=== PATIENT | female | born 1960 | race Caucasian/White ===

== ENCOUNTER 2016-09-19 23:55 | Observation (INO) | payer MEDICARE, OTHER ==
--- NOTE | ~2016-09-19 | MR17 ---
[facility] A Service of [facility] RADIOLOGY TEXT RESULTS PATIENT: HIMANSHU ZELAYA LOCATION: [facility] 567-01 : [birth year] UNIT #: [id number] AGE: [address]: Hedy Bedolla MD SEX: F ORDER DR: [id number] [facility] [address] [place], [place] [address] [id number] I MR#: [id number] Acc #: [id number] NAME: HIMANSHU ZELAYA. : 1960 SEX: F STUDY DATE/TIME: 09/20/2016 12:31 UNIT: [facility] ROOM: [facility] STUDY DESCRIPTION: MR Brain WWo Contrast Attending Physician: Hedy Bedolla M.D. Ordering Physician: Cody Bridges M.D. Primary Care Physician: No Primary Care Physician MRI CENTER REPORT This report is preliminary unless electronic signature is present. EXAM MRI of the brain with and without contrast 09/20/2016 HISTORY Seizure disorder, increasing headaches for a year, hypertension, seizures for 2 years, most recent one 2 days ago, blood disorder, cancer history. COMMENTS Routine MRI of the brain performed prior to and following intravenous administration of 60 mL MultiHance on a 1.5T system with a seizure protocol. The study is, unfortunately, motion limited and this is despite the use of some motion limited sequences. COMPARISON STUDIES There is a head CT comparison from 09/20/2016. FINDINGS There is no evidence for a recent ischemic insult on the diffusion series. There is no Chiari I malformation. No MRI evidence for intracranial hemorrhage. The ventricles are normal in size and configuration for age group. The major intracranial flow voids are maintained. Mastoid air cells are clear. Visualized paranasal sinuses are clear. No extraaxial fluid collection. The coronal T2 weighted imaging is somewhat motion limited but there is no convincing evidence for mesial temporal sclerosis. No intracranial mass effect. Following contrast administration, again allowing for motion, there is no pathologic intracranial enhancement. There is nothing to suggest ashton matter heterotopia. IMPRESSION The study is somewhat motion limited. Allowing for this, this is essentially an unremarkable MRI of the brain with and without contrast for age group. No seizure focus is documented but, if there is an EEG, which STS. [facility] A Service of [facility] RADIOLOGY TEXT RESULTS PATIENT: HIMANSHU ZELAYA LOCATION: [facility] 567-01 : [birth year] UNIT #: [id number] AGE: [address]: Hedy Bedolla MD SEX: F ORDER DR: shows a seizure abnormality, direct comparison recommended. No recent ischemic insult, intracranial mass effect or pathologic intracranial enhancement appreciated. Minor periventricular white matter signal abnormality likely due to small vessel disease within the range of expected for age group. STAT * RESULT Dictated by... Michelle Mccarthy M.D. THIS IS AN ELECTRONICALLY VERIFIED REPORT Michelle Mccarthy M.D. at 09/20/2016 9:12 PM Katie TD: 09/20/2016 15:54 JOB #: [id number] MRI CENTER REPORT COPY
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
--- NOTE | ~2016-09-19 | DS ---
Unit #: [id number] #: [id number] Patient: HIMANSHU ZELAYA [id number] [address] [address] [id number] I MR#: [id number] NAME: HIMANSHU ZELAYA ROOM: 56 Age: 56 Sex: F Admission Date: 09/20/2016 : 1960 Discharge Date: Attending Physician: Hedy Bedolla M.D. Primary Care Physician: No Primary Care Physician DISCHARGE SUMMARY DISCHARGE DIAGNOSES 1. Seizures. 2. Spells with increasing headaches secondary to seizures. 3. Chronic pain. 4. Hypertension. 5. Hyperlipidemia. 6. Anxiety. 7. Depression, on chronic opiates and sedatives. 8. History of gastric bypass. 9. Back surgery. CONSULTATIONS Dr. Bridges. PROCEDURES None. DIAGNOSTIC TESTING IMAGING: CT of the head negative. MRI is pending at the time of dictation. Chest x-ray - No acute findings. LAB DATA: Urine drug screen positive for benzodiazepines and TCAs. Troponin is negative. Urinalysis negative. Creatinine 0.5. WBC 4.8, hemoglobin 11.3, platelets 131. ALLERGIES Penicillin and ketorolac. DISCHARGE MEDICATIONS 1. Vimpat 100 mg p.o. b.i.d. 2. Doxepin 25 mg at bedtime. 3. Cymbalta 30 daily. 4. Trazodone 50 at bedtime. 5. Tessalon Perles 100 t.i.d. 6. Klonopin 2 mg t.i.d. 7. Estradiol 0.5 mg p.o. daily. 8. Lovastatin 20 daily. 9. Roxicodone 5 mg t.i.d. p.r.n. pain. 10. Nexium 40 daily. 11. Carisoprodol 350 mg p.o. b.i.d. 12. Vitamin B12 - 1,000 mcg p.o. daily. Unit #: [id number] #: [id number] Patient: HIMANSHU ZELAYA HOSPITALIZATION COURSE A 56 year old admitted because of passing spells. Seizures with passing spells for almost a year. The patient was seen by Dr. Bridges. CAT scan of the head is negative. EEG is abnormal with left-sided discharges. The patient was started on Vimpat. I gave a prescription for it. The patient needs to see her neurologist, who she is seeing next month. She already had an appointment. Patient cannot drive until cleared by family physician or neurologist. Patient understands that she cannot drive. I also told her son about not driving. All seizure precautions apply. Chronic pain. Patient was mildly lethargic during the hospitalization course. She needs to cut down on her sedatives and narcotics. I discontinued her Phenergan, and I decreased her trazodone. Anxiety and depression. Stable. DISCHARGE PLAN 1. The patient will be discharged home after MRI resulted. 2. Follow with PCP in 1 week. 3. Follow with her neurologist of choice. She had an appointment next month. 4. I gave a prescription for Vimpat. 5. Patient cannot drive until cleared by PCP or neurologist. The patient understands instructions. Dictated by... Hedy Bedolla M.D. ALLYN/jc TD: 09/20/2016 16:05 JOB #: [id number] DISCHARGE SUMMARY X Hedy Bedolla MD X DISCHARGE SUMMARY
--- NOTE | ~2016-09-19 | CT71 ---
[facility] A Service of [facility] RADIOLOGY TEXT RESULTS PATIENT: HIMANSHU ZELAYA LOCATION: [facility] 567-01 : [birth year] UNIT #: [id number] AGE: [address]: Hedy Bedolla MD SEX: F ORDER DR: [id number] [facility] [address] [place], [place] [address] [id number] I MR#: [id number] #: [id number] NAME: HIMANSHU ZELAYA : 1960 SEX: F STUDY DATE/TIME: 09/20/2016 03:04 UNIT: [facility] ROOM: [facility] STUDY DESCRIPTION: CT Head Wo Contrast Attending Physician: Drea Delgado M.D. Ordering Physician: Gennaro Knapp D.O. Primary Care Physician: Primary Care Physician No MEDICAL IMAGING REPORT This report is preliminary unless electronic signature is present EXAM Head CT, 09/20/2016 at 0304 hours. INDICATION Chronic headaches for 1 year with syncopal episodes and dizziness. Patient's most recent blackout with yesterday. TECHNIQUE Axial images were obtained from base to vertex without contrast. Comparison is made with 03/01/2016. This CT exam was performed with one or more of the following radiation dose reduction techniques: automatic exposure control, adjustment of mA and/or kV according to patient size, and iterative reconstruction. FINDINGS Ventricular size and configuration are normal. No acute infarct or hemorrhage is seen. There are no masses. There are no skull fractures. Mild atrophy is noted, predominantly in the frontal lobes. This is unchanged. IMPRESSION Negative noncontrast head CT. Dictated by... Bill Okeefe Jr., M.D. THIS IS AN ELECTRONICALLY VERIFIED REPORT Bill Okeefe Jr., M.D. at 09/21/2016 6:04 AM APRIL/sj [facility] A Service of [facility] RADIOLOGY TEXT RESULTS PATIENT: HIMANSHU ZELAYA LOCATION: [facility] 567-01 [id number] [birth year] UNIT #: [id number] AGE: [address]: Hedy Bedolla MD SEX: F ORDER DR: TD: 09/20/2016 04:20 JOB #: [id number] MEDICAL IMAGING REPORT COPY
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
--- NOTE | ~2016-09-19 | EE ---
Unit #: [id number] #: [id number] Patient: HIMANSHU ZELAYA [id number] [address] [address] [id number] Vinnie MR#: [id number] NAME: HIMANSHU ZELAYA : 1960 SEX: F STUDY DATE/TIME: 09/20/2016 UNIT: [facility] ROOM: 567 STUDY DESCRIPTION: EEG Attending Physician: Hedy Bedolla M.D. Referring Physician: Drea Delgado M.D. Primary Care Physician: No Primary Care Physician NEURODIAGNOSTICS REPORT PROCEDURE PERFORMED EEG. REASON FOR STUDY Several syncopal or seizure-like spells. EEG DESCRIPTION This is an inpatient, digitally recorded, multi-montage, adult EEG with leads placed according to the International 10-20 system. Hyperventilation and photic stimulation were attempted. PROCEDURE REPORT With the patient fully aroused, there is 10 Hz to 11 Hz posterior dominant alpha rhythm, which is symmetric and attenuates with eyes opening. There was some beta artifact. There was also some subtle slowing on the left side and definitely some transients, and occasionally phase reversing was seen between F7 and T3 and subtly between C3 and P3. Hyperventilation was attempted, and I do see a little bit of accentuation on the left side especially between F7 and T3 and some phase reversing. Photic stimulation was attempted in intermittent stepwise pattern up to flash frequency of 30 Hz, but I did not see any good deeper sustained driving. The patient did fall asleep, and stage II sleep was seen. IMPRESSION This is an abnormal, adult, awake and asleep EEG. The abnormality is the presence of slowing and some irritable foci on the left side. Please definitely clinically correlate with the patient's history and imaging studies. Please make sure there is no structural abnormality on MRI or CT, and clinical correlation is recommended. Treatment may be considered. Dictated by... Shani Martinez/jc TD: 09/20/2016 16:16 JOB #: [id number] Unit #: [id number] #: [id number] Patient: HIMANSHU ZELAYA NEURODIAGNOSTICS REPORT X Cody Bridges MD NEURODIAGNOSTICS REPORT
--- NOTE | ~2016-09-19 | CR72 ---
[facility] A Service of [facility] RADIOLOGY TEXT RESULTS PATIENT: HIMANSHU ZELAYA LOCATION: [facility] : [birth year] UNIT #: [id number] AGE: [address]: Drea Delgado MD SEX: F ORDER DR: [id number] [facility] [address] [place], [place] [address] [id number] MR#: [id number] Acc #: [id number] NAME: HIMANSHU ZELAYA : 1960 SEX: F STUDY DATE/TIME: 09/20/2016 01:24 UNIT: [facility] ROOM: STUDY DESCRIPTION: CR Chest Single View Portable Attending Physician: Gennaro Knapp D.O. Ordering Physician: Gennaro Knapp D.O. Primary Care Physician: Primary Care Physician No MEDICAL IMAGING REPORT This report is preliminary unless electronic signature is present EXAM Portable chest, 09/20/2016 at 0124 hours. INDICATION Blackout spells for the last 2 years. The most recent was 2 weeks ago. History of hypertension. Generalized weakness. FINDINGS AP portable chest was obtained. No comparison. There is mild cardiomegaly. There is marked elevation of the right hemidiaphragm. Lungs are clear. There is no pneumothorax. Patient is status post cervical fusion. IMPRESSION Cardiomegaly with marked elevation of the right hemidiaphragm. No acute findings in the chest. Dictated by... Bill Okeefe Jr., M.D. THIS IS AN ELECTRONICALLY VERIFIED REPORT Bill Okeefe Jr., M.D. at 09/20/2016 5:29 AM APRIL/sj TD: 09/20/2016 02:50 JOB #: [id number] MEDICAL IMAGING REPORT COPY
--- NOTE | ~2016-09-19 | EKG ---
PATIENT: HIMANSHU ZELAYA UNIT #: [id number] Ventricular Rate: 60 BPM Atrial Rate: 60 BPM P-R Interval: 120 ms QRS Duration: 80 ms Q-T Interval: 402 ms QTC Calculation(Bezet): 402 ms P [place]: 19 degrees Calculated R [place]: 51 degrees Calculated T [place]: 34 degrees Diagnosis Line: Normal sinus rhythm Diagnosis Line: Normal ECG Diagnosis Line: No previous ECGs available Diagnosis Line: Confirmed by ERICA PAULA MD ([id number]) on 09/21/2016 Diagnosis Line: 6:38:32 AM INTERPRETING MD: CHAI FINCH
[~2016-09-19 23:55] MED LIST: AMBIEN10 MG PO; ASPIRIN81 MG PO; CHOLESTEROL PILL; ESTRACE PO; IBUPROFEN PO; KLONOPIN2 MG PO; PAXIL PO; VOLTAREN75 MG PO
[2016-09-20 00:28] LABS: POC - CKMB <1.0 ng/mL (0.0-7.9); POC - TROPONIN <0.05 ng/mL (<=0.05)
[2016-09-20] MEDS ORDERED: TESSALON PERLE100 M1 PO (00:29)
[2016-09-20] MEDS ORDERED: KLONOPIN2 MG PO (00:30)
[2016-09-20] MEDS ORDERED: CYMBALTA30 M1 PO (00:31)
[2016-09-20] MEDS ORDERED: ESOMEPRAZOLE MA40 MG PO (00:32)
[2016-09-20] MEDS ORDERED: DOXEPIN HCL25 MG PO (00:32)
[2016-09-20] MEDS ORDERED: TOPROL XL50 MG (00:33)
[2016-09-20] MEDS ORDERED: LOVASTATIN20 M2 PO (00:33)
[2016-09-20 00:36] LABS: BASOPHIL% 0.2 % (0-2.5); EOSINOPHIL# 0.1 X10e3 (0-0.7); EOSINOPHIL% 1.4 % (0.0-7.0); HEMATOCRIT 34.2 % (35.0-45.0); HEMOGLOBIN 11.3 gm/dL (12.0-16.0); LYMPHOCYTE# 2.5 X10e3 (1.0-3.5); LYMPHOCYTE% 51.8 % (17.0-45.0); MEAN CELL VOLUME 97.5 FL (83-96); MEAN CORPUSCULAR HEMOGLOBIN 32.1 PG (28-34); MEAN PLATELET VOLUME 12.3 FL (6.5-11.5); MONOCYTE# 0.3 X10e3 (0-1.0); MONOCYTE% 6.4 % (3.0-12.0); NEUTROPHIL# 1.9 X10e3 (1.5-7.1); NEUTROPHIL% 40.2 % (40-75); PLATELET COUNT 131 X10e3 (140-420); RED BLOOD COUNT 3.51 X10e (3.90-5.30); RED CELL DISTRIBUTION WIDTH 12.9 % (11.0-15.5); WHITE BLOOD COUNT 4.8 X10e3 (4.0-10.5)
[2016-09-20] MEDS ORDERED: PHENERGAN25 M1 PO (00:36)
[2016-09-20] MEDS ORDERED: ESTRADIOL0.5 MG PO (00:37)
[2016-09-20] MEDS ORDERED: SOMA PO (00:37)
[2016-09-20 00:38] LABS: DIFF IND YES
[2016-09-20] MEDS ORDERED: B-121000 MC1 PO (00:38)
[2016-09-20] MEDS ORDERED: DESYREL50 MG PO (00:38)
[2016-09-20 00:49] LABS: ALBUMIN SERUM 3.7 g/dL (3.5-5.0); ALKALINE PHOSPHATASE 123 U/L (32-92); ALT (SGPT) 17 U/L (10-40); AST (SGOT) 21 U/L (10-42); BILIRUBIN, DIRECT 0.1 mg/dL (0.0-0.2); BILIRUBIN,INDIRECT 0.3 mg/dL (0.0-0.9); BILIRUBIN,TOTAL 0.4 mg/dL (0.2-2.0); BLOOD UREA NITROGEN 12 mg/dL (9-23); CALCIUM SERUM 8.5 mg/dL (8.4-10.2); CARBON DIOXIDE 27 mmol/L (22-31); CHLORIDE 107 mmol/L (100-111); CREATININE SERUM 0.5 mg/dL (0.6-1.4); GLOM FILT RATE Estimated ABOVE60 mL/min (>60); GLUCOSE FASTING 84 mg/dL (70-110); POTASSIUM 3.7 mmol/L (3.5-5.1); PROTEIN TOTAL SERUM 6.5 g/dL (6.0-8.3); SODIUM 141 mmol/L (135-145)
[2016-09-20 00:59] LABS: PLATELET ESTIMATE NORMAL (NORMAL)
[2016-09-20 01:27] LABS: URINE SOURCE CLEAN CATCH
[2016-09-20 01:31] LABS: URINE APPEARANCE CLEAR; URINE BILIRUBIN NEG (NEG); URINE BLOOD NEG (NEG); URINE COLOR YELLOW; URINE GLUCOSE NEG (NEG); URINE KETONE NEG (NEG); URINE LEUKOCYTE ESTERASE NEG (NEG); URINE NITRATE NEG (NEG); URINE PH 6.5 (5-8); URINE PROTEIN NEG (NEG); URINE SPECIFIC GRAVITY 1.019 (1.003-1.035); URINE UROBILINOGEN 0.2 MG/DL (NEG)
[2016-09-20 01:34] LABS: CULTURE INDICATED? NO
[2016-09-20 03:14] LABS: POC - CKMB <1.0 ng/mL (0.0-7.9); POC - TROPONIN <0.05 ng/mL (<=0.05)
[2016-09-20] MEDS ORDERED: ROXICODONE5 MG (04:08)
[2016-09-20 04:31] LABS: AMPHETAMINE NEG (NEG); BARBITURATES NEG (NEG); BENZODIAZEPINES POS (NEG); COCAINE NEG (NEG); MARIJUANA NEG (NEG); OPIATES NEG (NEG); TRICYCLIC ANTIDEPRESSANTS POS (NEG); U METHADONE NEG (NEG)
[2016-09-20] MEDS ORDERED: VIMPAT100 MG PO (17:52)
== END 2016-09-20 21:50 | disposition home or self-care (01) ==
LOC: CED 23:55 → CEDOF 09-20 04:40 → C5C 09-20 06:15
PROVIDERS: Emergency Medicine; Internal Medicine
DX: R56.9 Unspecified convulsions (principal); R51 Headache; R94.01 Abnormal electroencephalogram [EEG]; I51.7 Cardiomegaly; G93.89 Other specified disorders of brain; R55 Syncope and collapse; J98.6 Disorders of diaphragm; G89.4 Chronic pain syndrome; I10 Essential (primary) hypertension; E78.5 Hyperlipidemia, unspecified; F41.9 Anxiety disorder, unspecified; G89.29 Other chronic pain; F32.9 Major depressive disorder, single episode, unspecified; Z79.891 Long term (current) use of opiate analgesic; Z79.899 Other long term (current) drug therapy; Z84.89 Family history of other specified conditions; Z98.890 Other specified postprocedural states; Z90.710 Acquired absence of both cervix and uterus; Z90.49 Acquired absence of other specified parts of digestive tract; Z96.651 Presence of right artificial knee joint; Z98.84 Bariatric surgery status; Z88.6 Allergy status to analgesic agent; Z88.0 Allergy status to penicillin
CPT/HCPCS: 36415; 70450; 70553; 71010; 80048; 80076; 80307; 81003; 82553; 82947; 84484; 85025; 93005; 95816; 99285; A9577; G0378